=== PATIENT | female | born 1980 | race Caucasian/White ===

== ENCOUNTER → 2022-02-23 | Outpatient (CLI) | payer BC ==
[~2022-02-23] MED LIST: AMOX TR-K CLV1 EAC1 PO; IBUPROFEN600 MG PO
== END ==
LOC: RAD 10:51
PROVIDERS: ATTEND Nurse Practitioner
DX: K59.00 Constipation, unspecified (principal)
CPT/HCPCS: 74018

== ENCOUNTER → 2022-03-19 | Day surgery (SDC) | payer BC ==
[~2022-03-19] MED LIST changes: +EDARBI40 MG PO; +LIDOCAINE HCL 2% LOCAL INJ 5 ML SDV VIAL INJ ONE; +METOCLOPRAMIDE HCL 10 MG/2ML VIAL IV ONE; +MIDAZOLAM HCL 2 MG/2 ML VIAL ONE; +PROPOFOL IV EMULSION 10 MG/ML 20 ML VIAL IV ONE; +TESTOSTERO200 MG/1 M
[2022-03-19 14:30] VITALS: BP 125/82
== END | disposition home or self-care (01) ==
LOC: OR 10:22
PROVIDERS: ATTEND Internal Medicine Gastroenterology
DX: K21.9 Gastro-esophageal reflux disease without esophagitis (principal); K29.50 Unspecified chronic gastritis without bleeding; B96.81 Helicobacter pylori [H. pylori] as the cause of diseases classified elsewhere; K25.9 Gastric ulcer, unspecified as acute or chronic, without hemorrhage or perforation; K20.90 Esophagitis, unspecified without bleeding; K44.9 Diaphragmatic hernia without obstruction or gangrene; K59.00 Constipation, unspecified; R19.5 Other fecal abnormalities; D72.820 Lymphocytosis (symptomatic); Z71.3 Dietary counseling and surveillance; I10 Essential (primary) hypertension; Z71.89 Other specified counseling; F17.210 Nicotine dependence, cigarettes, uncomplicated; Z71.6 Tobacco abuse counseling; Z01.810 Encounter for preprocedural cardiovascular examination; Z01.812 Encounter for preprocedural laboratory examination; Z20.822 Contact with and (suspected) exposure to COVID-19; Z79.899 Other long term (current) drug therapy; Z68.25 Body mass index [BMI] 25.0-25.9, adult; Z86.16 Personal history of COVID-19
CPT/HCPCS: 0223U; 36415; 43239; 93005; C9113; J2001; J2250; J2704; J2765